=== PATIENT | male | born 1990 | race Caucasian/White ===

== ENCOUNTER 2018-10-28 23:13 | Emergency (ER) | payer BC ==
[2018-10-28 23:29] VITALS: BP 136/88; PULSE 71; TEMP 98.2; O2SAT 98
[2018-10-29] MEDS ORDERED: Lidocaine 5% Patch TD STA (00:12)
[2018-10-29] MEDS ORDERED: Lidocaine 5% Patch TD ONE (00:14)
--- NOTE | 2018-10-29 00:16 | C.PDOC ---
History Of Present Illness 28 year old male presents to the ED c/o lower back pain that started today after lifting heavy objects while at work. Patient states he thinks he pulled his back. Patient denies fever, chills, abdominal pain, saddle anesthesia, bowel / bladder incontinence, weakness, numbness, fall, trauma. Time Seen by Provider: 10/28/18 23:29 Chief Complaint (Nursing): Back Pain History Per: Patient History/Exam Limitations: no limitations Onset/Duration Of Symptoms: Hrs Current Symptoms Are (Timing): Still Present Quality Of Discomfort: "Pain" Exacerbating Factor(s): Movement Recent travel outside of the [place]: No Additional History Per: Patient Past Medical History Reviewed: Historical Data, Nursing Documentation, Vital Signs Vital Signs: Last Vital Signs Temp 98.2 F 10/28/18 23:20 Pulse 71 10/28/18 23:20 Resp 18 10/28/18 23:20 BP 136/88 10/28/18 23:20 Pulse Ox 98 10/28/18 23:20 - Medical History PMH: No Chronic Diseases Surgical History: No Surg Hx Family History: States: Unknown Family Hx - Social History Hx Tobacco Use: No Hx Alcohol Use: No Hx Substance Use: No - Immunization History Hx Tetanus Toxoid Vaccination: No Hx Influenza Vaccination: No Hx Pneumococcal Vaccination: No Review Of Systems Constitutional: Negative for: Fever, Chills Cardiovascular: Negative for: Chest Pain Respiratory: Negative for: Shortness of Breath Gastrointestinal: Negative for: Nausea, Vomiting, Abdominal Pain Genitourinary: Negative for: Incontinence Musculoskeletal: Positive for: Back Pain Skin: Negative for: Rash Neurological: Negative for: Weakness, Numbness, Headache Physical Exam - Physical Exam Appears: Non-toxic, No Acute Distress Skin: Normal Color, Warm, Dry Head: Atraumatic, Normacephalic Eye(s): bilateral: Normal Inspection Neck: Normal ROM, Supple Chest: Symmetrical Cardiovascular: Rhythm Regular Respiratory: Normal Breath Sounds, No Rales, No Rhonchi, No Wheezing Gastrointestinal/Abdominal: Soft, No Tenderness, No Guarding, No Rebound Back: No Vertebral Tenderness, Paraspinal Tenderness (paralumbar R > L), Straight Leg Raising (R > L at 40 degrees) Extremity: Normal ROM, No Tenderness, No Swelling Neurological/Psych: Oriented x3, Normal Speech, Normal Cognition Gait: Other (with a limp due to pain) ED Course And Treatment O2 Sat by Pulse Oximetry: 98 (ON RA) Pulse Ox Interpretation: Normal Progress Note: Plan: - Lidoderm patch. - Valium 5 mg PO. - Toradol 30 mg IM. On reassessment, patient is resting comfortably, with improvement of back pain. Patient remains afebrile, with no bony tenderness, extremity numbness or weakness, or abdominal pain. Patient is ambulatory in the emergency department with no signs of discomfort. Patient was advised to follow up with physician/clinic in 1-2 days. Disposition Counseled Patient/Family Regarding: Diagnosis, Need For Followup - Disposition Referrals: [facility] [Outside] Disposition: HOME/ ROUTINE Disposition Time: 00:12 Condition: STABLE Additional Instructions: Take medications as directed Apply lidoderm patch as needed for pain Apply warm compress to area Return to ER if worse Prescriptions: Cyclobenzaprine [Cyclobenzaprine HCl] 10 mg PO BID #10 tab Ibuprofen [Motrin] 600 mg PO Q6H #24 tab Lidocaine 5% [Lidoderm] 1 ea TD DAILY #5 patch Instructions: Lumbar Muscle Strain (DC) Forms: [email or web address] (Pashto), Work Excuse - Clinical Impression Clinical Impression: Lumbar sprain - PA / [employer] / Resident Statement MD/DO has reviewed & agrees with the documentation as recorded. - Scribe Statement The provider has reviewed the documentation as recorded by the Scribe Geoff Low All medical record entries made by the Scribe were at my direction and personally dictated by me. I have reviewed the chart and agree that the record accurately reflects my personal performance of the history, physical exam, medical decision making, and the department course for this patient. I have also personally directed, reviewed, and agree with the discharge instructions and disposition.
[2018-10-29 00:21] VITALS: RESP 20
== END 2018-10-29 00:21 | disposition home or self-care (01) ==
LOC: C.ER 23:13
DX: S33.5XXA Sprain of ligaments of lumbar spine, initial encounter (principal); X50.0XXA Overexertion from strenuous movement or load, initial encounter; Y92.89 Other specified places as the place of occurrence of the external cause; Y99.0 Civilian activity done for income or pay
CPT/HCPCS: 96372; 99283; J1885